=== PATIENT | female | born 1935 | race Caucasian/White ===

== ENCOUNTER → 2016-07-08 | Outpatient (CLI) | payer MEDICARE, OTHER ==
--- NOTE | 2016-07-09 08:37 | RSPPFT ---
DATE OF PROCEDURE: 07/08/16 COMMENTS: VOLUMES DYNAMIC: FVC and FEV1 normal. STATIC: VTG and RV mildly increased; TLC normal. FLOWS: FEV1% and FEF 25-75 normal. DIFFUSION: Normal. FLOW VOLUME LOOP: Normal configuration. IMPRESSION: No significant airways obstruction or restriction with normal diffusion. There is minimal change post-bronchodilator.
== END ==
LOC: HRSP 11:54
PROVIDERS: ATTEND Family Medicine
DX: R94.2 Abnormal results of pulmonary function studies (principal); R04.2 Hemoptysis
CPT/HCPCS: 94060; 94726; 94729